=== PATIENT | female | born 1985 | race Caucasian/White ===

== ENCOUNTER 2021-08-29 11:59 | Emergency (ER) | payer OTHER ==
[~2021-08-29] VITALS: Ht 162.6 cm; Wt 65.8 kg
[2021-08-29] MEDS ORDERED: KETOROLAC TROMETHAMINE 60 MG/2 ML VIAL IM ONE (12:45)
[2021-08-29] MEDS ORDERED: DIAZEPAM 5 MG TAB PO ONE (12:45)
[2021-08-29 14:15] VITALS: BP 133/87
== END 2021-08-29 14:25 | disposition home or self-care (01) ==
LOC: ER 12:06
DX: S16.1XXA Strain of muscle, fascia and tendon at neck level, initial encounter (principal); R51.9 Headache, unspecified; S54.02XA Injury of ulnar nerve at forearm level, left arm, initial encounter; V43.52XA Car driver injured in collision with other type car in traffic accident, initial encounter; Y92.488 Other paved roadways as the place of occurrence of the external cause; E04.1 Nontoxic single thyroid nodule
CPT/HCPCS: 70450; 72125; 73080; 81025; 99283; J1885